=== PATIENT | female | born 1935 | race Caucasian/White ===

== ENCOUNTER → 2018-01-23 | Outpatient (CLI) | payer MEDICARE, OTHER ==
[~2018-01-23] MED LIST: ADVAIR 500-501 EACH INH; ADVAIR HFA115 MCG/21 INH; ALBUTEROL2.5 MG/0.1 INH; ASPIRIN81 M2 PO; CALCIUM STOOL240 MG PO; CELLCEPT500 MG PO; CHILDREN'S ACET80 M1 PO; CRANBERRY200 MG PO; DIPHENHYDRAMINE25 M3 PO; ENOXAPARIN30 MG/0.3; EYE DROP; HYDROCODON-ACE1 EAC5 PO; HYDROCODON-ACE1 EAC7 PO; HYDROCODON-ACE1 EAC8 PO; LEVOTHYROXIN0.025 MG PO; LIPOFEN150 MG PO; LOSARTAN-HCTZ1 EAC2 PO; LOSARTAN/HCTZ; LOVENOX100 MG/1 M SQ; LYRICA 50 MG50 MG PO; METAMUCIL283 GM PO; MIRALAX17 G1 PO; MULTIVITAMINS1 EAC7 PO; NEXIUM40 MG PO; OMEPRAZOLE 20 M20 MG PO; OXYBUTYNIN CHLO10 MG PO; OXYIR5 MG PO; SIMVASTATIN20 MG PO; SINGULAIR 10 MG10 M1 PO; VITAMIN D 5050000 I1 PO; XARELTO20 MG PO; [UNRECOGNIZED DRUG - OTHER]
== END ==
LOC: M.RAD 12:41
DX: R06.2 Wheezing (principal); R06.02 Shortness of breath; Z87.09 Personal history of other diseases of the respiratory system